=== PATIENT | male | born 1995 | race African-American/Black ===

== ENCOUNTER 2018-03-07 05:00 | Emergency (ER) | payer OTHER ==
[~2018-03-07] VITALS: Ht 172.7 cm; Wt 63.5 kg
--- NOTE | 2018-03-07 05:40 | NUR ---
PT A/OX4, PT PRESENTS TO THE ER REQUESTING STD TEST BECAUSE HE HAD "UNPROTECTED SEX 2 MONTHS AGO". PT DENIES DYSURIA AND PENILE DISCHARGE. PT DENIES PAIN, C/P, SOB, N/V/D, DIZZINESS, HEADACHE.
--- NOTE | 2018-03-07 06:00 | NUR ---
RICKY RED AT BEDSIDE FOR MSE.
[2018-03-07] MEDS ORDERED: PENICILLIN G BENZATHINE 2.4 MMU/4 ML DISP.SYRIN IM ONE ×2 (06:15→06:29)
[2018-03-07] MEDS ORDERED: ONDANSETRON IV *ER 4 MG/2 ML VIAL IV ONE (06:15)
[2018-03-07] MEDS ORDERED: AZITHROMYCIN 250 MG TABLET PO ONE (06:15)
[2018-03-07] MEDS ORDERED: CEFTRIAXONE 1 G in IV DEXTROSE 5% 50 ML IV ONE (06:15)
[2018-03-07] MEDS ORDERED: AZITHROMYCIN 250 MG TABLET ONE (06:28)
[2018-03-07] MEDS ORDERED: ONDANSETRON 4 MG/2 ML VIAL ONE (06:28)
[2018-03-07] MEDS ORDERED: CEFTRIAXONE 1 G VIAL ONE (06:29)
--- NOTE | 2018-03-07 06:50 | NUR ---
PT OFFERED FOOD AND WATER, PT REFUSED.
--- NOTE | 2018-03-07 07:01 | NUR ---
REPORT GIVEN TO MARIELLE CHAPPELL.
--- NOTE | 2018-03-07 07:15 | NUR ---
PATIENT IS AWAKE AND ALERT WITH NO NEW COMPLAINTS. HE IS SITTING UP WATCHING TV IN NO DISTRESS. STATES HE DOES NOT WANT BREAKFAST AT THIS TIME.
--- NOTE | 2018-03-07 07:30 | NUR ---
PATIENT STATES HE WAS IN NURSING HOME RECENTLY FOR "TRESPASSING' AND "ALL MY STUFF" ARE AT THE NURSING HOME ON "[address] [place]". STATES HE WANT TO GO THERE AND GET HIS STUFF AND HE DOES NOT WANT HELP GETTING TO A FPC BUT ADMITS HES HOMELESS 'AT TIMES". HE HAS LONG PANTS ON, SNEAKERS AND LONG SLEEVE SWEATSHIRT ON. I GAVE SEVERAL BOTTLES OF WATER AND JUICE AND ALSO GAVE HIM SOME TOILETRIES JUST IN CASE HE NEEDS IT. HE STATES HE MAY HAVE A PLACE TO STAY TONIGHT BUT ADIMENTLY REFUSES A FPC. HE WILLINGLY SIGNED THE "HOMELESS PATIENT WAIVER FORM". HE WAS MADE OF AWARE OF HIS HIV TEST RESULTS (NEGATIVE) AND WAS TOLD THAT THE REST OF THE RESULTS WILL NOT BE AVAILABLE FOR A FEW DAYS-WEEK. HE WAS ALSO GIVEN MONEY FOR THE BUS AND SPECIFIC DIRECTIONS TO WALK TO THE CORRECT BUS AND SPECIFIC INSTRUCTIONS TO REACH THE [place] [facility]. I WALKED OUTSIDE THE ER WITH HIM TO TELL HIM TO WALK TO THE NEAREST LIGHT AND NOT J-WALK AND HE AGREED. HE WALKED WITH STEADY GAIT, WAS NOT INTOXICATED WITH ANY DRUG (PER HIS STATEMENT AND BEHAVIOR) AND IS ABLE TO FOLLOW DIRECTIONS.
[2018-03-07 07:56] VITALS: BP 128/71
[2018-03-08 08:06] LABS: HEPATITIS B SURFACE AB Non Reactive (.); HEPATITIS B SURFACE AG Negative (Negative)
[2018-03-08 22:12] LABS: *GC NAA Negative (Negative); *TRIC.VAG. NAA Negative (Negative)
[2018-03-11 07:06] LABS: HEPATITIS A AB, TOTAL Positive (Negative)
== END 2018-03-07 07:57 | disposition home or self-care (01) ==
LOC: ER 05:04
DX: Z20.2 Contact with and (suspected) exposure to infections with a predominantly sexual mode of transmission (principal); F17.200 Nicotine dependence, unspecified, uncomplicated; F12.10 Cannabis abuse, uncomplicated; F15.10 Other stimulant abuse, uncomplicated; Z59.0 Homelessness
CPT/HCPCS: 36415; 86592; 86706; 86708; 86803; 87340; 87491; 87536; 87806; 96372; 96374; 96375; 99283; J0696; J2405; J7060; A4663; Q0144